=== PATIENT | male | born 1950 | race Caucasian/White ===

== ENCOUNTER 2016-04-12 10:08 | Outpatient (CLI) | payer OTHER, BC ==
[~2016-04-12 10:08] MED LIST: CARAFATE EQUIVAL1 GM PO; EXCEDRIN EXTRA1 TAB PO; FLONASE AL50 MCG/ACT IN; PROTONIX40 MG PO
--- NOTE | 2016-04-15 18:35 | DIAGNOSTIC IMAGING REPORT ---
PROCEDURE: XR UPPER GI WITH AIR INDICATION: Recent esophageal impaction. Recent endoscopy demonstrates duodenal ulcer. TECHNIQUE: Double contrast study. Fluoroscopy time, 5.8 minutes; 4129.38 mGy. 61 fluoroscopic images (including cinefluoroscopy). COMPARISON: None. FINDINGS: There is mild to moderate gastroesophageal reflux with mild generalized narrowing of the distal esophagus (minimum diameter 11 mm). There is a small sliding hiatal hernia with Schatzki's ring (10 mm minimum diameter). The rest of the esophagus is normal. Stomach is normal. Findings suggest a 4 mm prepyloric channel ulcer. In addition, there is a collection of contrast extending from this ulcer into the region of the pancreas and common duct. There is a large 3.8 cm diverticulum of the third segment of the duodenum (incidental finding). The rest of the duodenum is normal. IMPRESSION: 1. Mild to moderate gastroesophageal reflux. 2. Mild generalized narrowing of the distal esophagus (11 mm). Consider reflux stricture. 3. Findings suggest 4 mm prepyloric channel ulcer. In addition, findings suggest a tract extending from the ulcer into the region of the head of the pancreas and/or common duct (pancreatic or biliary fistula). 4. Large 3.8 cm duodenal diverticulum (incidental finding). 5. Findings discussed with the patient and called to Dr. Green.
== END 2016-04-12 23:00 ==
LOC: XR SRH 10:08
DX: K21.9 Gastro-esophageal reflux disease without esophagitis (principal); K57.10 Diverticulosis of small intestine without perforation or abscess without bleeding